=== PATIENT | female | born 1955 | race Caucasian/White ===

== ENCOUNTER → 2018-01-19 08:44 | Outpatient (CLI) | payer MEDICARE, MEDICAID, SELFPAY ==
--- NOTE | 2018-01-19 08:46 | MM_ITS ---
MM Dig screening mamm BI w/CAD ORDERING PHYSICIAN : Ming Terry MD PATIENT AGE: 62 years GENDER: Female COMPARISON: January. INDICATION: ITS.REASON: screening. 62-year-old. Patient takes Estrogen. No new complaints. Noncontributory family history. TECHNIQUE: Standard CC and MLO images were obtained. R2 CAD reviewed. FINDINGS: Minimal residual fibroglandular elements. Mild diffuse accentuation of fibroglandular elements throughout both breast is seen this year and is a change compared to the previous studies,. This appears reflect the interval addition of exogenous oestrogen therapy.. Considering such as see no new areas of significant concern.. This situation glandular tissue which accentuate some areas does yield slight limitations in review of this patient's mammogram, but again no significant new focal area of concern felt to be present overall . Otherwise background of Relatively lower density breast. With No new dominant mass or suspicious calcifications. Scattered benign dermal type calcifications evident bilateral RIGHT BREAST: No focal area of significant concern Area of subtle additional density at the lateral retroareolar region on cc view dissipates on the MLO view and most compatible with an area of accentuated fibroglandular tissue from the estrogen LEFT BREAST:. No focal area of concern. Follow-up in one year . Small intramammary node similar to 2014. Can be followed. IMPRESSION: ...... . There is accentuation of fibroglandular elements in both breast reflecting the exogenous hormone effect. Considering such, no unique nor new focal area of significant concern Bilateral follow-up within one year is recommended; and should be emphasized/encouraged BI-RADS Category: 2 Benign Finding(s) RECOMMENDED FOLLOW-UP: 1YR 1 YEAR FOLLOW-UP (A letter has been sent to the patient regarding results of the study.)
== END ==
PROVIDERS: Family Provider Emergency Medicine; PCP Emergency Medicine; Visit Provider Obstetrics & Gynecology
DX: Z12.31 Encounter for screening mammogram for malignant neoplasm of breast (principal)
CPT/HCPCS: 77067

== ENCOUNTER → 2018-01-28 10:38 | Outpatient (CLI) | payer MEDICARE, MEDICAID, SELFPAY ==
--- NOTE | 2018-01-28 10:41 | XR_ITS ---
XR chest 2V HISTORY: Right-sided chest pain swelling ITS.REASON: rib pain ORDERING PHYSICIAN: Ming Terry MD PATIENT AGE: 62 years COMPARISON: None FINDINGS: Unremarkable cardiovascular structures. No lobar consolidation or collapse. There are old left-sided rib fractures. Minimal lower thoracic curvature convex right. IMPRESSION: As above, no acute finding
== END ==
PROVIDERS: PCP Emergency Medicine; Visit Provider Obstetrics & Gynecology
DX: R07.81 Pleurodynia
CPT/HCPCS: 71046

== ENCOUNTER → 2018-09-21 13:32 | Outpatient (CLI) | payer MEDICARE, MEDICAID, SELFPAY ==
[2018-09-21 13:59] LABS: Basophils % 0.5 % (0.1-2.0); Eosinophils # 0.1 K/mm3 (0.0-0.4); Eosinophils % 1.7 % (0.1-12.0); Hematocrit 41.1 % (37.0-47.0); Hemoglobin 12.7 g/dL (12.2-16.2); Lymphocytes # 1.3 K/mm3 (0.7-4.5); Lymphocytes % 40.4 % (10-50); Mean Corpuscular HGB Conc 30.9 g/dL (31.8-35.4); Mean Corpuscular Hemoglobin 29.8 pg (27.0-31.2); Mean Corpuscular Volume 96.4 fl (81-99); Mean Platelet Volume 8.8 fl (7.4-10.4); Monocytes # 0.2 K/mm3 (0.1-1.0); Monocytes % 5.1 % (1.7-9.3); Neutrophils # 1.7 K/mm3 (1.8-7.8); Neutrophils % 52.2 % (37.0-80.0); Platelet Count 201 K/mm3 (142-424); Red Blood Count 4.27 M/mm3 (4.20-5.40); Red Cell Distribution Width 12.9 % (11.5-17.5); White Blood Count 3.3 K/mm3 (4.8-10.8)
[2018-09-21 14:06] LABS: Erythrocyte Sedimentation Rate 14 mm/hr (0-30)
[2018-09-21 15:44] LABS: Alanine Aminotransferase 30 U/L (12-78); Albumin Level 4.1 gm/dL (3.4-5.0); Albumin/Globulin Ratio 1.4 (1.1-1.8); Alkaline Phosphatase 104 U/L (46-116); Anion Gap 12.7 mEq/L (5-15); Aspartate Amino Transferase 27 U/L (15-37); Bilirubin,Total 0.4 mg/dL (0.2-1.0); Blood Urea Nitrogen 12 mg/dL (7-18); Calcium 11.3 mg/dL (8.5-10.1); Carbon Dioxide 29 mmol/L (21.0-32.0); Chloride 104 mmol/L (98-107); Creatinine,Serum 0.89 mg/dL (0.55-1.02); Estimated Glomerular Filt Rate 65 ml/min (>60); GFR (African American) 78 ML/MIN (>60); Glucose 95 mg/dL (74-106); Potassium 4.7 mmoL/L (3.5-5.1); Sodium 141 mmol/L (136-145); Total Protein,Serum 7.1 gm/dL (6.4-8.2)
== END ==
PROVIDERS: Visit Provider Emergency Medicine
DX: R53.83 Other fatigue (principal)
CPT/HCPCS: 80053; 85025; 85651

== ENCOUNTER → 2018-10-12 10:16 | Outpatient (CLI) | payer MEDICARE, MEDICAID, SELFPAY ==
[2018-10-12 11:15] LABS: Basophils % 0.4 % (0.1-2.0); Eosinophils # 0.1 K/mm3 (0.0-0.4); Eosinophils % 1.5 % (0.1-12.0); Hematocrit 40.2 % (37.0-47.0); Hemoglobin 12.6 g/dL (12.2-16.2); Lymphocytes # 1.9 K/mm3 (0.7-4.5); Lymphocytes % 44.7 % (10-50); Mean Corpuscular HGB Conc 31.3 g/dL (31.8-35.4); Mean Corpuscular Hemoglobin 28.6 pg (27.0-31.2); Mean Corpuscular Volume 91.3 fl (81-99); Mean Platelet Volume 8.3 fl (7.4-10.4); Monocytes # 0.3 K/mm3 (0.1-1.0); Monocytes % 5.9 % (1.7-9.3); Neutrophils % 47.6 % (37.0-80.0); Platelet Count 210 K/mm3 (142-424); Red Cell Distribution Width 12.5 % (11.5-17.5); White Blood Count 4.3 K/mm3 (4.8-10.8)
== END ==
PROVIDERS: Visit Provider Physician Assistant
DX: D70.9 Neutropenia, unspecified (principal)
CPT/HCPCS: 36415; 85025

== ENCOUNTER → 2018-10-13 11:08 | Outpatient (CLI) | payer MEDICARE, MEDICAID, SELFPAY ==
[2018-10-13 11:59] LABS: Basophils % 0.4 % (0.1-2.0); Eosinophils # 0.1 K/mm3 (0.0-0.4); Eosinophils % 1.1 % (0.1-12.0); Hematocrit 38.8 % (37.0-47.0); Hemoglobin 12.2 g/dL (12.2-16.2); Lymphocytes # 1.4 K/mm3 (0.7-4.5); Lymphocytes % 31.5 % (10-50); Mean Corpuscular HGB Conc 31.5 g/dL (31.8-35.4); Mean Corpuscular Hemoglobin 28.6 pg (27.0-31.2); Mean Corpuscular Volume 90.9 fl (81-99); Mean Platelet Volume 8.2 fl (7.4-10.4); Monocytes # 0.2 K/mm3 (0.1-1.0); Monocytes % 5.2 % (1.7-9.3); Neutrophils # 2.7 K/mm3 (1.8-7.8); Neutrophils % 61.7 % (37.0-80.0); Platelet Count 208 K/mm3 (142-424); Red Blood Count 4.27 M/mm3 (4.20-5.40); Red Cell Distribution Width 12.3 % (11.5-17.5); White Blood Count 4.3 K/mm3 (4.8-10.8)
[2018-10-13 12:54] LABS: Alanine Aminotransferase 24 U/L (12-78); Albumin/Globulin Ratio 1.3 (1.1-1.8); Alkaline Phosphatase 103 U/L (46-116); Anion Gap 10.6 mEq/L (5-15); Aspartate Amino Transferase 16 U/L (15-37); Bilirubin,Direct 0.1 mg/dL (0.0-0.2); Bilirubin,Indirect 0.4 mg/dL (0.0-0.9); Bilirubin,Total 0.5 mg/dL (0.2-1.0); Blood Urea Nitrogen 15 mg/dL (7-18); Calcium 11.8 mg/dL (8.5-10.1); Carbon Dioxide 31 mmol/L (21.0-32.0); Chloride 105 mmol/L (98-107); Creatinine,Serum 0.84 mg/dL (0.55-1.02); Estimated Glomerular Filt Rate 69 ml/min (>60); Ferritin 164 ng/mL (8-388); GFR (African American) 84 ML/MIN (>60); Globulin 3.2 gm/dl (1.3-3.2); Glucose 93 mg/dL (74-106); Potassium 4.6 mmoL/L (3.5-5.1); Sodium 142 mmol/L (136-145); Thyroid Stimulating Hormone 2.46 uIU/ml (0.358-3.740); Total Protein,Serum 7.2 gm/dL (6.4-8.2)
[2018-10-14 08:22] LABS: Iron 69 ug/dL (27-159); UIBC 253 ug/dL (131-425)
[2018-10-14 10:32] LABS: Iron Saturation 21 % (15-55)
[2018-10-15 11:12] LABS: Peripheral Smear Review Scanned Result
== END ==
PROVIDERS: Visit Provider Nurse Practitioner Family
DX: R53.83 Other fatigue (principal); D64.9 Anemia, unspecified; D72.9 Disorder of white blood cells, unspecified; D72.829 Elevated white blood cell count, unspecified
CPT/HCPCS: 36415; 80053; 80076; 82728; 83540; 83550; 84443; 85025; 85060

== ENCOUNTER → 2018-11-16 11:56 | Outpatient (CLI) | payer MEDICARE, MEDICAID, SELFPAY ==
[2018-11-16 12:26] LABS: Basophils % 0.4 % (0.1-2.0); Eosinophils % 0.8 % (0.1-12.0); Hematocrit 34.6 % (37.0-47.0); Hemoglobin 11.1 g/dL (12.2-16.2); Lymphocytes # 1.1 K/mm3 (0.7-4.5); Lymphocytes % 20.9 % (10-50); Mean Corpuscular HGB Conc 32.1 g/dL (31.8-35.4); Mean Corpuscular Volume 93.2 fl (81-99); Mean Platelet Volume 8.6 fl (7.4-10.4); Monocytes # 0.3 K/mm3 (0.1-1.0); Monocytes % 4.9 % (1.7-9.3); Neutrophils # 3.8 K/mm3 (1.8-7.8); Neutrophils % 73.1 % (37.0-80.0); Platelet Count 204 K/mm3 (142-424); Red Blood Count 3.71 M/mm3 (4.20-5.40); Red Cell Distribution Width 12.4 % (11.5-17.5); White Blood Count 5.2 K/mm3 (4.8-10.8)
[2018-11-16 12:35] LABS: Alanine Aminotransferase 20 U/L (12-78); Albumin Level 3.7 gm/dL (3.4-5.0); Albumin/Globulin Ratio 1.3 (1.1-1.8); Alkaline Phosphatase 98 U/L (46-116); Anion Gap 10.2 mEq/L (5-15); Aspartate Amino Transferase 16 U/L (15-37); Bilirubin,Total 0.3 mg/dL (0.2-1.0); Blood Urea Nitrogen 11 mg/dL (7-18); Calcium 11.4 mg/dL (8.5-10.1); Carbon Dioxide 30 mmol/L (21.0-32.0); Chloride 104 mmol/L (98-107); Creatinine,Serum 0.87 mg/dL (0.55-1.02); Estimated Glomerular Filt Rate 66 ml/min (>60); GFR (African American) 80 ML/MIN (>60); Globulin 2.8 gm/dl (1.3-3.2); Glucose 104 mg/dL (74-106); Potassium 4.2 mmoL/L (3.5-5.1); Sodium 140 mmol/L (136-145); Total Protein,Serum 6.5 gm/dL (6.4-8.2)
== END ==
PROVIDERS: Visit Provider Nurse Practitioner Family
DX: K59.00 Constipation, unspecified (principal)
CPT/HCPCS: 36415; 80053; 85025

== ENCOUNTER → 2018-11-17 09:29 | Outpatient (CLI) | payer MEDICARE, MEDICAID, SELFPAY ==
--- NOTE | 2018-11-17 09:33 | CT_ITS ---
Procedure: CT ABDOMEN PELVIS W CON CLINICAL INDICATION: ALTERED BOWEL FUNCTION, CONSTIPATION, irritable bowel syndrome COMPARISON: No exams were available for comparison TECHNIQUE: 75 mL Optiray 350 IV Axial images obtained with sagittal and coronal reformats. All CT scans at the facility use one or more dose reduction, viz: automated exposure control, ma/kV adjustment per patient size (including targeted exams where dose is matched to indication, i.e. head), or iterative reconstruction technique. FINDINGS: Lung bases are clear. There is minimal prominence of the intrahepatic biliary tree. The gallbladder is not appear distended. There is a curvilinear calcific density at the fundus of the gallbladder anteriorly with questionable small amount of pericholecystic fluid at this region. The the spleen and pancreas have an unremarkable appearance. There is some minimal calcification of the right adrenal gland but no adrenal enlargement. Bilateral renal cortical scarring is present more prominent on the right. There is a nonobstructing 3 mm stone in the upper pole of the left kidney and there is a small left renal cyst posteriorly at 4 mm. No intestinal obstruction or free air. The appendix is not clearly delineated. No evidence of appendicitis. No intestinal obstruction or free air. No evidence of diverticulitis. There is a small calcific density adjacent to the lateral aspect of the ascending colon nonspecific and could be due to a diverticulum filled with contrast. There are few scattered diverticula of the sigmoid colon. There is mild thickening of the sigmoid colon which could be due to nondistention. There is also mild thickening of the rectum which could be due to nondistention or proctitis. Artifact is present from a left hip prosthesis. No acute bony findings. IMPRESSION: 1. Mild thickening of the sigmoid colon and rectum. Colitis/proctitis is a consideration. This may also be related to nondistention. 2. There are few scattered diverticula but no evidence of diverticulitis. 3. Minimal curvilinear calcification in the fundus of the gallbladder. Recommend follow-up to confirm stability as developing porcelain gallbladder would be included in the differential diagnosis. There is some minimal nonspecific prominence of the biliary tree is well. Dictated by: Emmanuel Reynolds MD 11/17/2018 14:33 Signed by: <Electronically signed by Emmanuel Reynolds MD in [place]> 11/17/2018 14:33
== END ==
PROVIDERS: PCP Emergency Medicine; Visit Provider Nurse Practitioner Family
DX: R19.4 Change in bowel habit (principal)
CPT/HCPCS: 74177; Q9967

== ENCOUNTER → 2018-11-30 10:34 | Outpatient (CLI) | payer MEDICARE, MEDICAID, SELFPAY ==
[2018-11-30 11:30] LABS: Phosphorous 2.2 mg/dL (2.4-4.9)
[2018-12-02 11:39] LABS: Calcium, Ionized 6.9 mg/dL (4.5-5.6); Parathyroid Hormone Intact 144 pg/mL (15-65)
== END ==
PROVIDERS: Visit Provider Surgery
DX: K82.9 Disease of gallbladder, unspecified (principal)
CPT/HCPCS: 36415; 82330; 83970; 84100

== ENCOUNTER → 2018-12-02 08:46 | Outpatient (CLI) | payer MEDICARE, MEDICAID, SELFPAY ==
--- NOTE | 2018-12-02 08:47 | US_ITS ---
PROCEDURE: US GALLBLADDER CLINICAL INDICATION: RUQ pain Nausea, loss of appetite, some weight loss COMPARISON: CT ABDOMEN PELVIS W CON from 11/17/2018 FINDINGS: Pancreas: Unremarkable though a portion of the tail is obscured by bowel gas. Liver: Unremarkable. There is appropriate direction of blood flow within a non dilated portal vein. Right kidney: Unremarkable appearing. The kidney measures 8.3 x 3.2 by 5.5 cm. There is mild uniform cortical thinning. No hydronephrosis. Gallbladder: The gallbladder appears normal in size and there is marked acoustic shadowing beneath consistent with a contracted gallbladder filled with calcified and partially calcified gallstones. The common bile duct measures 3 mm in diameter. IMPRESSION: Obvious cholelithiasis, no other significant abnormality noted Dictated by: Dr. Filiberto Rinaldi MD 12/02/2018 09:[address] Filiberto Rinaldi MD in [place] 12/02/2018 09:26
== END ==
PROVIDERS: PCP Emergency Medicine; Visit Provider Surgery
DX: K82.9 Disease of gallbladder, unspecified (principal)
CPT/HCPCS: 76705

== ENCOUNTER → 2018-12-05 13:48 | Outpatient (CLI) | payer MEDICARE, MEDICAID, SELFPAY ==
[2018-12-07 16:10] LABS: Albumin 3.6 g/dL (2.9-4.4); Alpha-1-Globulin 0.3 g/dL (0.0-0.4); Alpha-2-Globulin 0.8 g/dL (0.4-1.0); Gamma Globulin 0.8 g/dL (0.4-1.8); Protein, Total 6.5 g/dL (6.0-8.5)
[2018-12-08 07:09] LABS: Vitamin D 25 Hydroxy 44.5 ng/mL (30.0-100.0)
== END ==
PROVIDERS: Visit Provider Surgery
DX: E21.3 Hyperparathyroidism, unspecified (principal)
CPT/HCPCS: 36415; 82652; 84155; 84165

== ENCOUNTER → 2019-03-10 13:40 | Outpatient (CLI) | payer MEDICARE, MEDICAID, SELFPAY ==
[2019-03-10 16:14] LABS: Amphetamine/Metha Screen,Urine Positive ng/mL (<1000); Barbiturates Screen,Urine Negative ng/mL (<200); Benzodiazepines Screen,Urine Negative ng/mL (<200); Cannabinoid Screen,Urine Positive ng/mL (<50); Cocaine Screen,Urine Negative ng/mL (<300); Methadone Screen,Urine Positive ng/mL (<300); Opiate Screen,Urine Positive ng/mL (<300); Phencyclidine Screen,Urine Negative ng/mL (<25)
== END ==
PROVIDERS: Visit Provider Emergency Medicine
DX: Z79.899 Other long term (current) drug therapy (principal)
CPT/HCPCS: 80305

== ENCOUNTER → 2019-03-20 13:38 | Outpatient (CLI) | payer MEDICARE, MEDICAID, SELFPAY ==
[2019-03-20 14:47] LABS: Amphetamine/Metha Screen,Urine Positive ng/mL (<1000); Barbiturates Screen,Urine Negative ng/mL (<200); Benzodiazepines Screen,Urine Negative ng/mL (<200); Cannabinoid Screen,Urine Positive ng/mL (<50); Cocaine Screen,Urine Negative ng/mL (<300); Methadone Screen,Urine Negative ng/mL (<300); Opiate Screen,Urine Positive ng/mL (<300); Phencyclidine Screen,Urine Negative ng/mL (<25)
== END ==
PROVIDERS: Visit Provider Emergency Medicine
DX: Z79.899 Other long term (current) drug therapy (principal)
CPT/HCPCS: 80305

== ENCOUNTER → 2019-05-12 13:36 | Outpatient (CLI) | payer MEDICARE, MEDICAID, SELFPAY ==
[2019-05-12 15:53] LABS: Amphetamine/Metha Screen,Urine Positive ng/mL (<1000); Barbiturates Screen,Urine Negative ng/mL (<200); Benzodiazepines Screen,Urine Negative ng/mL (<200); Cannabinoid Screen,Urine Positive ng/mL (<50); Cocaine Screen,Urine Positive ng/mL (<300); Methadone Screen,Urine Negative ng/mL (<300); Opiate Screen,Urine Positive ng/mL (<300); Phencyclidine Screen,Urine Negative ng/mL (<25)
== END ==
PROVIDERS: Visit Provider Emergency Medicine
DX: Z79.899 Other long term (current) drug therapy (principal)
CPT/HCPCS: 80305

== ENCOUNTER → 2020-05-23 08:28 | Outpatient (CLI) | payer MEDICARE, MEDICAID, SELFPAY ==
--- NOTE | 2020-05-23 08:28 | MM_ITS ---
PROCEDURE: MM DIG SCREENING MAMM BI W/CAD Digital Breast Tomosynthesis Included CLINICAL INDICATION: Z12.31 There is no personal or family history of breast cancer. COMPARISON: [facility] DIG MAMM-SCREEN [facility] from 05/22/2013 [facility] DIG MAMM-SCREEN [facility] W/CAD from 04/07/2016 [facility] MM Dig screening mamm BI w/CAD from 01/19/2018 TECHNIQUE: Standard CC and MLO images and 3D Tomosynthesis was obtained. R2 CAD reviewed. FINDINGS: Scattered fibroglandular densities are seen throughout both breast. There are several benign-appearing microcalcifications in each breast. The nipples are inverted bilaterally but this has been noted previously. There is a stable small benign-appearing nodular density upper-outer quadrant left breast. There is no suspicious lesion in either breast and no suspicious microcalcifications. IMPRESSION: Fibrofatty parenchyma with no suspicious lesions seen BI-RAD Category: 2 Benign Finding(s) FOLLOW-UP: 1YR 1 Year Follow-up (A letter has been sent to the patient regarding results of the study.) Dictated by: Dr. Filiberto Rinaldi MD 05/24/2020 15:43 Dr. Filiberto Rinaldi MD in [place] 05/24/2020 15:43
== END ==
PROVIDERS: PCP Emergency Medicine; Visit Provider Emergency Medicine
DX: Z12.31 Encounter for screening mammogram for malignant neoplasm of breast (principal)
CPT/HCPCS: 77063; 77067

== ENCOUNTER → 2020-07-03 14:00 | Outpatient (CLI) | payer MEDICARE, MEDICAID, SELFPAY ==
[2020-07-03 14:19] LABS: Phencyclidine Screen,Urine Negative ng/ml (<25)
[2020-07-03 14:28] LABS: Amphetamine/Metha Screen,Urine Positive ng/ml (<1000)
[2020-07-03 14:30] LABS: Barbiturates Screen,Urine Negative ng/ml (<200); Cannabinoid Screen,Urine Positive ng/ml (<50)
[2020-07-03 14:31] LABS: Benzodiazepines Screen,Urine Negative ng/ml (<200)
[2020-07-03 14:32] LABS: Cocaine Screen,Urine Negative ng/ml (<300); Methadone Screen,Urine Positive ng/ml (<300)
[2020-07-03 14:33] LABS: Opiate Screen,Urine Positive ng/ml (<300)
== END ==
PROVIDERS: Visit Provider Emergency Medicine
DX: M51.36 Other intervertebral disc degeneration, lumbar region (principal)
CPT/HCPCS: 80305

== ENCOUNTER 2020-08-19 17:21 | Emergency (ER) | payer MEDICARE, MEDICAID, SELFPAY ==
[2020-08-19 17:26] VITALS: BP 147/54; PULSE 80; O2SAT 98
[2020-08-19 17:28] VITALS: BP 147/54; PULSE 81; RESP 18; TEMP 36.1; O2SAT 99; BMI 26.0
--- NOTE | 2020-08-19 17:31 | XR_ITS ---
PROCEDURE INFORMATION: Exam: XR Right Wrist Exam date and time: 08/19/20 05:31 PM Age: 64 years old Clinical indication: Pain; Wrist; Right; Patient HX: Fall; Additional info: Trauma TECHNIQUE: Imaging protocol: XR Right wrist. Views: 3 or more views. COMPARISON: No relevant prior studies available. FINDINGS: Bones/joints: Normal. Soft tissues: Normal. IMPRESSION: No acute findings.
--- NOTE | 2020-08-19 17:31 | CT_ITS ---
PROCEDURE INFORMATION: Exam: CT Maxillofacial Without Contrast Exam date and time: 08/19/20 05:31 PM Age: 64 years old Clinical indication: Injury or trauma; Maxilla; Without residual foreign body; Patient HX: Fall down steps, laceration to chin TECHNIQUE: Imaging protocol: Computed tomography images of the face without contrast. Radiation optimization: All CT scans at this facility use at least one of these dose optimization techniques: automated exposure control; mA and/or kV adjustment per patient size (includes targeted exams where dose is matched to clinical indication); or iterative reconstruction. COMPARISON: No relevant prior studies available. FINDINGS: Orbital cavity: Orbits are normal. Globes are unremarkable. Bones/joints: No acute fracture. Paranasal sinuses: Chronic frontal and ethmoid sinusitis. Soft tissues: Unremarkable. IMPRESSION: No acute traumatic injury detected.
--- NOTE | 2020-08-19 17:31 | XR_ITS ---
PROCEDURE INFORMATION: Exam: XR Right Hand Exam date and time: 08/19/20 05:31 PM Age: 64 years old Clinical indication: Pain; Hand; Right; Patient HX: Fall; Additional info: Trauma TECHNIQUE: Imaging protocol: XR Right hand. Views: 3 or more views. COMPARISON: No relevant prior studies available. FINDINGS: Bones/joints: Degenerative changes in the DIP joints. Soft tissues: Normal. IMPRESSION: Degenerative changes in the DIP joints.
--- NOTE | 2020-08-19 17:31 | XR_ITS ---
PROCEDURE INFORMATION: Exam: XR Right Knee Exam date and time: 08/19/20 05:31 PM Age: 64 years old Clinical indication: Pain; Right; Prior surgery; Surgery date: 6+ months; Surgery type: Total knee replacement 2016; Patient HX: Fall; Additional info: Trauma TECHNIQUE: Imaging protocol: XR Right knee. Views: 3 views. COMPARISON: CR [id number] 04/24/16 10:06 AM FINDINGS: Bones/joints: Right total knee arthroplasty in good position. Soft tissues: Normal. IMPRESSION: Right total knee arthroplasty in good position.
--- NOTE | 2020-08-19 18:17 | HMH.EDFALL ---
ED Disposition Clinical Impression: Accidental fall Qualifiers: Encounter type: initial encounter Qualified Code(s): W19.XXXA - Unspecified fall, initial encounter Laceration of face without complication Qualifiers: Encounter type: initial encounter Qualified Code(s): S01.81XA - Laceration without foreign body of other part of head, initial encounter Disposition: Home, Self-Care Condition on Discharge: Good Instructions: How to Prevent Falls Referrals: Chalino Mckeon MD [Primary Care Provider] - - Critical Care Critical Care Time: No Attestation: On 08/19/20, the high probability of a clinically significant, sudden or life threatening deterioration of the following system(s) required my full and direct attention, intervention and personal management. The time I documented below is in addition to time spent performing reported procedures but includes the following listed in this critical care notation. Medical Decision Making - Medical Records Medical records reviewed: Yes: I reviewed the patient's medical records. - Roderick Inquiry Pt receiving controlled substance: Yes Roderick was queried for this patient: No Reason not queried -: Emergent pt cond-no time Risks and benefits of using a controlled substance: were discussed with pt by me Vital Signs: 08/19/20 17:26 08/19/20 17:28 Temperature 97.0 F L Temperature Source Oral Pulse Rate 80 Pulse Rate [Left] 81 Respiratory Rate 18 Blood Pressure 147/54 H Blood Pressure [Right Arm] 147/54 H Blood Pressure Mean 77 Blood Pressure Mean [Right Arm] 85 Blood Pressure Source [Right Arm] Automatic Cuff 02 Sat by Pulse Oximetry 98 99 Oxygen Delivery Method Room Air Orders (Tests/Meds): ED MEDICATIONS Discontinued Medications Generic Name Dose Route Start Last Admin Trade Name Freq PRN Reason Stop Dose Admin Hydrocodone Bitart/Acetaminophen 1 tab 08/19/20 17:33 08/19/20 17:39 Hydrocodone/Apap 5/325 Mg Tablet PO 08/19/20 17:34 1 tab ONCE ONE Administration Lidocaine/Epinephrine 10 ml 08/19/20 18:01 08/19/20 18:02 Lidocaine 1% W/Epi 1:100,000 20ml Vial IM 08/19/20 18:02 10 ml ONCE ONE Administration - Radiology Data #1 Image(s): Wrist, Hand, Knee Image Reviewed: Yes I reviewed the patient's radiology results, Yes I reviewed the patient's radiology image Preliminary Findings: Normal/NAD, No Fracture Seen - CT Data CT Scan: Other (face) Time Received: 18:[address] Reviewed: Yes: I have reviewed the patient's CT results, I have viewed the radiologist's interpretation Preliminary Findings: Normal/NAD, No Fracture Seen - Reevaluation(s) Time: 18:29 Reevaluation #1: Patient tolerated procedure well. Needs follow-up with PCP in 1 week for wound reevaluation. Given strict return precautions. Verbalized understanding. Medical Decision Narrative: 64-year-old female presented to the emergency department after an accidental fall. Patient is a laceration to the chin. There is no loss of consciousness. Patient does not meet imaging criteria for the head or cervical spine. X-rays will be obtained as well as CT of the maxillofacial. Patient will require suture repair. Fall HPI - General Chief Complaint: Fall Stated Complaint: AO 08/19 lac chin Hand Time Seen by Provider: 08/19/20 17:30 Mode of Arrival: Ambulatory Limitations: No Limitations Description of Symptoms (Recalled from ER Triage Doc. by RN): patient fell off porch and down approx 6 steps around 1700. patient with laceration to chin, right wrist/knee abrasions. patient denies LOC - History of Present Illness HPI Narrative: 64-year-old female presented to the emergency department after accidental fall. Patient states that she was walking up her stairs when she tripped and fell. She hit her hand in wrist. She is complaining of some facial pain as well. Patient did not have any loss of consciousness. She is not endorsing any headache. She has a
--- NOTE | 2020-08-19 18:21 | PC.NURSE ---
in room for procedure
[2020-08-19 18:34] VITALS: BP 147/54; PULSE 83; RESP 16; TEMP 36.8; O2SAT 98
== END 2020-08-19 18:42 | disposition home or self-care (01) ==
PROVIDERS: Emergency Provider Emergency Medicine; PCP Emergency Medicine
DX: S01.81XA Laceration without foreign body of other part of head, initial encounter (principal); W10.9XXA Fall (on) (from) unspecified stairs and steps, initial encounter; Y92.019 Unspecified place in single-family (private) house as the place of occurrence of the external cause; F41.8 Other specified anxiety disorders; M81.0 Age-related osteoporosis without current pathological fracture; E03.9 Hypothyroidism, unspecified
CPT/HCPCS: 12052; 70486; 73110; 73130; 73562; 99283

== ENCOUNTER → 2020-08-27 14:07 | Outpatient (CLI) | payer MEDICARE, MEDICAID, SELFPAY ==
[2020-08-27 17:03] LABS: Amphetamine/Metha Screen,Urine Negative ng/ml (<1000)
[2020-08-27 17:04] LABS: Barbiturates Screen,Urine Negative ng/ml (<200); Benzodiazepines Screen,Urine Negative ng/ml (<200)
[2020-08-27 17:05] LABS: Cannabinoid Screen,Urine Positive ng/ml (<50)
[2020-08-27 17:06] LABS: Cocaine Screen,Urine Negative ng/ml (<300); Methadone Screen,Urine Negative ng/ml (<300)
[2020-08-27 17:07] LABS: Opiate Screen,Urine Negative ng/ml (<300)
[2020-08-27 17:08] LABS: Phencyclidine Screen,Urine Negative ng/ml (<25)
== END ==
PROVIDERS: Visit Provider Emergency Medicine
DX: M51.36 Other intervertebral disc degeneration, lumbar region (principal); M54.9 Dorsalgia, unspecified
CPT/HCPCS: 80305

== ENCOUNTER → 2020-10-22 14:01 | Outpatient (CLI) | payer MEDICARE, MEDICAID, SELFPAY ==
[2020-10-22 14:36] LABS: Amphetamine/Metha Screen,Urine Negative ng/ml (<1000)
[2020-10-22 14:37] LABS: Barbiturates Screen,Urine Negative ng/ml (<200); Benzodiazepines Screen,Urine Negative ng/ml (<200)
[2020-10-22 14:38] LABS: Cannabinoid Screen,Urine Positive ng/ml (<50)
[2020-10-22 14:40] LABS: Cocaine Screen,Urine Negative ng/ml (<300)
[2020-10-22 14:41] LABS: Methadone Screen,Urine Negative ng/ml (<300)
[2020-10-22 14:42] LABS: Phencyclidine Screen,Urine Negative ng/ml (<25)
[2020-10-22 14:58] LABS: Opiate Screen,Urine Negative ng/ml (<300)
== END ==
PROVIDERS: Visit Provider Emergency Medicine
DX: M51.36 Other intervertebral disc degeneration, lumbar region (principal)
CPT/HCPCS: 80305

== ENCOUNTER → 2020-12-18 13:51 | Outpatient (CLI) | payer MEDICARE, MEDICAID, SELFPAY ==
[2020-12-18 14:34] LABS: Barbiturates Screen,Urine Negative ng/ml (<200)
[2020-12-18 14:35] LABS: Benzodiazepines Screen,Urine Negative ng/ml (<200)
[2020-12-18 14:36] LABS: Cannabinoid Screen,Urine Positive ng/ml (<50); Cocaine Screen,Urine Negative ng/ml (<300)
[2020-12-18 14:37] LABS: Methadone Screen,Urine Negative ng/ml (<300)
[2020-12-18 14:38] LABS: Opiate Screen,Urine Negative ng/ml (<300); Phencyclidine Screen,Urine Negative ng/ml (<25)
[2020-12-18 15:01] LABS: Amphetamine/Metha Screen,Urine Positive ng/ml (<1000)
== END ==
PROVIDERS: Visit Provider Emergency Medicine
DX: M51.36 Other intervertebral disc degeneration, lumbar region (principal)
CPT/HCPCS: 80305

== ENCOUNTER → 2021-02-14 13:21 | Outpatient (CLI) | payer MEDICARE, MEDICAID, SELFPAY ==
[2021-02-14 21:59] LABS: Barbiturates Screen,Urine Negative ng/ml (<200)
[2021-02-14 22:00] LABS: Benzodiazepines Screen,Urine Negative ng/ml (<200)
[2021-02-14 22:01] LABS: Cannabinoid Screen,Urine Positive ng/ml (<50)
[2021-02-14 22:02] LABS: Cocaine Screen,Urine Negative ng/ml (<300); Methadone Screen,Urine Negative ng/ml (<300)
[2021-02-14 22:03] LABS: Opiate Screen,Urine Negative ng/ml (<300); Phencyclidine Screen,Urine Negative ng/ml (<25)
[2021-02-14 22:58] LABS: Amphetamine/Metha Screen,Urine Positive ng/ml (<1000)
== END ==
PROVIDERS: Visit Provider Emergency Medicine
DX: M51.36 Other intervertebral disc degeneration, lumbar region (principal)
CPT/HCPCS: 80305

== ENCOUNTER → 2021-04-21 18:09 | Outpatient (CLI) | payer MEDICARE, MEDICAID, SELFPAY ==
[2021-04-21 19:38] LABS: Amphetamine/Metha Screen,Urine Negative ng/ml (<1000); Barbiturates Screen,Urine Negative ng/ml (<200)
[2021-04-21 19:39] LABS: Benzodiazepines Screen,Urine Negative ng/ml (<200); Cannabinoid Screen,Urine Positive ng/ml (<50)
[2021-04-21 19:40] LABS: Cocaine Screen,Urine Negative ng/ml (<300)
[2021-04-21 19:41] LABS: Methadone Screen,Urine Negative ng/ml (<300); Opiate Screen,Urine Positive ng/ml (<300)
[2021-04-21 19:42] LABS: Phencyclidine Screen,Urine Negative ng/ml (<25)
== END ==
PROVIDERS: Visit Provider Emergency Medicine
DX: M51.36 Other intervertebral disc degeneration, lumbar region (principal)
CPT/HCPCS: 80305

== ENCOUNTER → 2021-06-17 16:00 | Outpatient (CLI) | payer MEDICARE, MEDICAID, SELFPAY ==
[2021-06-17 18:27] LABS: Barbiturates Screen,Urine Negative ng/ml (<200)
[2021-06-17 18:28] LABS: Benzodiazepines Screen,Urine Negative ng/ml (<200); Cannabinoid Screen,Urine Positive ng/ml (<50)
[2021-06-17 18:29] LABS: Cocaine Screen,Urine Negative ng/ml (<300)
[2021-06-17 18:30] LABS: Methadone Screen,Urine Negative ng/ml (<300); Opiate Screen,Urine Negative ng/ml (<300)
[2021-06-17 18:31] LABS: Phencyclidine Screen,Urine Negative ng/ml (<25)
[2021-06-30 16:14] LABS: Amphetamine Positive (.); Amphetamine (GC/MS) 5092 ng/mL (Cutoff=500); Amphetamines Positive (.); Methamphetamine Positive (.); Methamphetamine (GC/MS) 1202 ng/mL (Cutoff=500)
== END ==
PROVIDERS: Visit Provider Emergency Medicine
DX: M51.36 Other intervertebral disc degeneration, lumbar region (principal); Z79.899 Other long term (current) drug therapy
CPT/HCPCS: 80305; 80324

== ENCOUNTER → 2021-07-02 09:29 | Outpatient (CLI) | payer MEDICARE, MEDICAID, SELFPAY ==
--- NOTE | 2021-07-02 09:33 | XR_ITS ---
FINAL REPORT CLINICAL HISTORY: lateral foot and ankle pain FINDINGS: LEFT ANKLE: Three views of the left ankle were obtained. There is no acute fracture or dislocation. The joint spaces and mortise are intact. There are calcaneal spurs. There is no soft tissue abnormality. IMPRESSION: No acute bony abnormality. Reviewed, Interpreted and Dictated by Ramone Delgadillo III, MD Transcribed by Anmol Wright Authenticated by Ramone Delgadillo III, MD on 07/02/2021 11:30:05 AM [facility]
--- NOTE | 2021-07-02 09:33 | XR_ITS ---
FINAL REPORT CLINICAL HISTORY: lateral foot and ankle pain FINDINGS: 3 views of the last foot were obtained. There is no acute fracture or dislocation. There are mild degenerative changes. There are calcaneal spurs. The soft tissues are unremarkable. IMPRESSION: Mild degenerative change. Reviewed, Interpreted and Dictated by Ramone Delgadillo III, MD Transcribed by Anmol Wright Authenticated by Ramone Delgadillo III, MD on 07/02/2021 11:30:41 AM [facility]
--- NOTE | 2021-07-02 09:33 | XR_ITS ---
FINAL REPORT CLINICAL HISTORY: lateral foot and ankle pain FINDINGS: RIGHT ANKLE: Three views of the right ankle were obtained. There is no acute fracture or dislocation. There are mild degenerative changes. There are calcaneal spurs. There is no soft tissue abnormality. IMPRESSION: Mild degenerative change. Reviewed, Interpreted and Dictated by Ramone Delgadillo III, MD Transcribed by Anmol Wright Authenticated by Ramone Delgadillo III, MD on 07/02/2021 11:30:34 AM [facility]
--- NOTE | 2021-07-02 09:33 | XR_ITS ---
FINAL REPORT CLINICAL HISTORY: lateral foot and ankle pain FINDINGS: RIGHT FOOT: Three views of the right foot were obtained. There is no acute fracture or dislocation. There are mild degenerative changes. There are calcaneal spurs. There is no soft tissue abnormality. IMPRESSION: Mild degenerative change. Reviewed, Interpreted and Dictated by Ramone Delgadillo III, MD Transcribed by Anmol Wright Authenticated by Ramone Delgadillo III, MD on 07/02/2021 11:30:31 AM [facility]
== END ==
PROVIDERS: PCP Emergency Medicine; Visit Provider Podiatrist
DX: M25.572 Pain in left ankle and joints of left foot (principal); M25.571 Pain in right ankle and joints of right foot; M79.672 Pain in left foot; M79.671 Pain in right foot
CPT/HCPCS: 73610; 73630

== ENCOUNTER → 2021-08-11 08:50 | Outpatient (CLI) | payer MEDICARE, MEDICAID, SELFPAY ==
[2021-08-11 15:06] LABS: Barbiturates Screen,Urine Negative ng/ml (<200)
[2021-08-11 15:07] LABS: Benzodiazepines Screen,Urine Positive ng/ml (<200)
[2021-08-11 15:08] LABS: Cannabinoid Screen,Urine Positive ng/ml (<50); Cocaine Screen,Urine Negative ng/ml (<300)
[2021-08-11 15:09] LABS: Methadone Screen,Urine Negative ng/ml (<300); Opiate Screen,Urine Positive ng/ml (<300)
[2021-08-11 15:10] LABS: Phencyclidine Screen,Urine Negative ng/ml (<25)
[2021-08-11 15:59] LABS: Amphetamine/Metha Screen,Urine Positive ng/ml (<1000)
== END ==
LOC: LAB 08-12 10:41 → LAB.DROPOF 08-12 10:52
PROVIDERS: PCP Emergency Medicine; Visit Provider Emergency Medicine
DX: M51.36 Other intervertebral disc degeneration, lumbar region (principal)
CPT/HCPCS: 80305

== ENCOUNTER → 2022-01-27 09:11 | Outpatient (CLI) | payer MEDICARE, MEDICAID, SELFPAY ==
--- NOTE | 2022-01-27 09:15 | XR_ITS ---
FINAL REPORT CLINICAL HISTORY: knee pain replacement 5 yrs ago COMPARISON: July 2020 FINDINGS: 3 views of the right knee were obtained. There is no acute fracture or dislocation. There has been knee arthroplasty. There is a moderate but stable knee joint effusion. IMPRESSION: Post arthroplasty change without evidence of complication. Stable joint effusion. Reviewed, Interpreted and Dictated by Ramone Delgadillo III, MD Transcribed by Anmol Wright Authenticated and [facility]
== END ==
PROVIDERS: PCP Emergency Medicine; Visit Provider Orthopaedic Surgery
DX: M25.561 Pain in right knee (principal)
CPT/HCPCS: 73562

== ENCOUNTER → 2022-04-01 14:51 | Outpatient (CLI) | payer MEDICARE, MEDICAID, SELFPAY ==
[2022-04-01 15:15] LABS: Basophils % 0.5 % (0.1-2.0); Eosinophils # 0.1 K/mm3 (0.0-0.4); Eosinophils % 1.4 % (0.1-12.0); Hematocrit 35.1 % (37.0-47.0); Hemoglobin 11.6 g/dL (12.2-16.2); Lymphocytes # 1.4 K/mm3 (0.7-4.5); Lymphocytes % 30.1 % (10-50); Mean Corpuscular Hemoglobin 30.8 pg (27.0-31.2); Mean Corpuscular Volume 93.3 fl (81-99); Monocytes # 0.2 K/mm3 (0.1-1.0); Monocytes % 4.4 % (1.7-9.3); Neutrophils # 2.9 K/mm3 (1.8-7.8); Neutrophils % 63.4 % (37.0-80.0); Platelet Count 288 K/mm3 (142-424); Red Blood Count 3.77 M/mm3 (4.20-5.40); Red Cell Distribution Width 13.2 % (11.5-17.5); White Blood Count 4.5 K/mm3 (4.8-10.8)
[2022-04-01 15:41] LABS: Chloride 105 mmol/L (98-107); Potassium 4.7 mmoL/L (3.5-5.1); Sodium 140 mmol/L (136-145)
[2022-04-01 15:43] LABS: Alanine Aminotransferase 15 U/L (12-78); Aspartate Amino Transferase 28 U/L (14-36); Blood Urea Nitrogen 18 mg/dl (7-17); Estimated Glomerular Filt Rate 72 ml/min (>60); GFR (African American) 87 ML/MIN (>60)
[2022-04-01 15:44] LABS: Albumin Level 3.9 g/dl (3.5-5.0); Albumin/Globulin Ratio 1.4 (1.1-1.8); Alkaline Phosphatase 73 U/L (38-126); Anion Gap 11.7 mEq/L (5-15); Bilirubin,Total 0.4 mg/dl (0.2-1.3); Calcium 8.7 mg/dl (8.4-10.2); Carbon Dioxide 28 mmol/L (22.0-30.0); Chol/HDL Ratio 3.5 (1-3.5); Cholesterol 198 mg/dl (140-200); Globulin 2.7 g/dL (1.3-3.2); Glucose 96 mg/dl (74-100); HDL Cholesterol 56 mg/dl (40-60); Total Protein,Serum 6.6 g/dl (6.3-8.2); Triglycerides 84 mg/dl (30-150); VLDL Cholesterol 17 mg/dL (0-40)
[2022-04-01 15:55] LABS: Direct LDL Cholesterol 96.97 mg/dL (100-129)
[2022-04-01 16:01] LABS: Barbiturates Screen,Urine Negative ng/ml (<200); Free T4 (Free Thyroxine) 0.86 ng/dl (0.78-2.19)
[2022-04-01 16:02] LABS: 25-OH Vitamin D, Total 31.1 ng/mL (30-100); Benzodiazepines Screen,Urine Positive ng/ml (<200)
[2022-04-01 16:03] LABS: Cannabinoid Screen,Urine Positive ng/ml (<50); Cocaine Screen,Urine Negative ng/ml (<300)
[2022-04-01 16:04] LABS: Methadone Screen,Urine Negative ng/ml (<300)
[2022-04-01 16:06] LABS: Opiate Screen,Urine Positive ng/ml (<300); Phencyclidine Screen,Urine Negative ng/ml (<25)
[2022-04-01 19:44] LABS: Amphetamine/Metha Screen,Urine Positive ng/ml (<1000)
== END ==
LOC: LAB.DROPOF 14:52
PROVIDERS: PCP Emergency Medicine; Visit Provider Emergency Medicine
DX: R53.83 Other fatigue (principal); Z79.899 Other long term (current) drug therapy; E55.9 Vitamin D deficiency, unspecified
CPT/HCPCS: 80053; 80061; 80305; 82306; 84439; 84443; 85025

== ENCOUNTER → 2022-07-20 13:54 | Outpatient (CLI) | payer MEDICARE, MEDICAID, SELFPAY ==
[2022-07-20 14:07] LABS: Barbiturates Screen,Urine Negative ng/ml (<200)
[2022-07-20 14:08] LABS: Benzodiazepines Screen,Urine Positive ng/ml (<200); Cannabinoid Screen,Urine Positive ng/ml (<50)
[2022-07-20 14:09] LABS: Cocaine Screen,Urine Negative ng/ml (<300)
[2022-07-20 14:10] LABS: Methadone Screen,Urine Negative ng/ml (<300); Opiate Screen,Urine Negative ng/ml (<300)
[2022-07-20 14:11] LABS: Phencyclidine Screen,Urine Negative ng/ml (<25)
[2022-07-20 18:29] LABS: Amphetamine/Metha Screen,Urine Positive ng/ml (<1000)
== END ==
LOC: LAB.DROPOF 13:54
PROVIDERS: PCP Emergency Medicine; Visit Provider Emergency Medicine
DX: M25.511 Pain in right shoulder (principal)
CPT/HCPCS: 80305

== ENCOUNTER → 2022-09-16 14:00 | Outpatient (CLI) | payer MEDICARE, MEDICAID, SELFPAY ==
[2022-09-16 13:06] LABS: Barbiturates Screen,Urine Negative ng/ml (<200)
[2022-09-16 13:08] LABS: Benzodiazepines Screen,Urine Positive ng/ml (<200); Cannabinoid Screen,Urine Positive ng/ml (<50)
[2022-09-16 13:09] LABS: Cocaine Screen,Urine Negative ng/ml (<300); Methadone Screen,Urine Negative ng/ml (<300)
[2022-09-16 13:10] LABS: Opiate Screen,Urine Positive ng/ml (<300)
[2022-09-16 13:11] LABS: Phencyclidine Screen,Urine Negative ng/ml (<25)
[2022-09-19 20:09] LABS: Amphetamine Positive (.); Amphetamine (GC/MS) >3000 ng/mL (Cutoff=500); Amphetamines Positive (.); Methamphetamine Positive (.); Methamphetamine (GC/MS) 1823 ng/mL (Cutoff=500)
== END ==
LOC: LAB.DROPOF 14:00
PROVIDERS: PCP Emergency Medicine; Visit Provider Emergency Medicine
DX: M25.511 Pain in right shoulder (principal)
CPT/HCPCS: 80305; 80324

== ENCOUNTER → 2022-11-12 16:19 | Outpatient (CLI) | payer MEDICARE, MEDICAID, SELFPAY ==
[2022-11-12 18:35] LABS: Benzodiazepines Screen,Urine Positive ng/ml (<200)
[2022-11-12 18:36] LABS: Barbiturates Screen,Urine Negative ng/ml (<200)
[2022-11-12 18:37] LABS: Cannabinoid Screen,Urine Positive ng/ml (<50); Cocaine Screen,Urine Negative ng/ml (<300)
[2022-11-12 18:38] LABS: Methadone Screen,Urine Negative ng/ml (<300); Opiate Screen,Urine Positive ng/ml (<300)
[2022-11-12 18:39] LABS: Phencyclidine Screen,Urine Negative ng/ml (<25)
[2022-11-12 18:58] LABS: Amphetamine/Metha Screen,Urine Positive ng/ml (<1000)
== END ==
LOC: LAB.DROPOF 16:20
PROVIDERS: PCP Emergency Medicine; Visit Provider Emergency Medicine
DX: M25.511 Pain in right shoulder (principal)
CPT/HCPCS: 80305

== ENCOUNTER → 2023-01-06 13:08 | Outpatient (CLI) | payer MEDICARE, MEDICAID, SELFPAY ==
[2023-01-06 12:18] LABS: Barbiturates Screen,Urine Negative ng/ml (<200); Benzodiazepines Screen,Urine Positive ng/ml (<200)
[2023-01-06 12:19] LABS: Cocaine Screen,Urine Negative ng/ml (<300)
[2023-01-06 12:20] LABS: Methadone Screen,Urine Negative ng/ml (<300)
[2023-01-06 12:21] LABS: Cannabinoid Screen,Urine Positive ng/ml (<50); Opiate Screen,Urine Positive ng/ml (<300)
[2023-01-06 12:22] LABS: Phencyclidine Screen,Urine Negative ng/ml (<25)
[2023-01-11 13:15] LABS: Amphetamine Positive (.); Amphetamine (GC/MS) >3000 ng/mL (Cutoff=500); Amphetamines Positive (.); Methamphetamine Positive (.); Methamphetamine (GC/MS) 2111 ng/mL (Cutoff=500)
== END ==
LOC: LAB.DROPOF 13:09
PROVIDERS: PCP Emergency Medicine; Visit Provider Emergency Medicine
DX: M25.511 Pain in right shoulder (principal); Z79.899 Other long term (current) drug therapy
CPT/HCPCS: 80305; 80324

== ENCOUNTER → 2023-03-16 11:34 | Outpatient (CLI) | payer MEDICARE, SELFPAY ==
[2023-03-16 12:10] LABS: Barbiturates Screen,Urine Negative ng/ml (<200)
[2023-03-16 12:12] LABS: Benzodiazepines Screen,Urine Positive ng/ml (<200); Cocaine Screen,Urine Negative ng/ml (<300)
[2023-03-16 12:13] LABS: Cannabinoid Screen,Urine Positive ng/ml (<50)
[2023-03-16 12:14] LABS: Methadone Screen,Urine Negative ng/ml (<300); Phencyclidine Screen,Urine Negative ng/ml (<25)
[2023-03-16 12:15] LABS: Opiate Screen,Urine Negative ng/ml (<300)
[2023-03-27 08:37] LABS: Amphetamine Positive (.); Amphetamine (GC/MS) >3000 ng/mL (Cutoff=500); Amphetamines Positive (.); Methamphetamine Positive (.); Methamphetamine (GC/MS) 1453 ng/mL (Cutoff=500)
== END ==
PROVIDERS: PCP Internal Medicine; Visit Provider Internal Medicine
DX: Z79.899 Other long term (current) drug therapy (principal)
CPT/HCPCS: 80307; 80324

== ENCOUNTER 2023-04-27 15:19 | Outpatient (CLI) | payer MEDICARE, SELFPAY ==
--- NOTE | 2023-04-27 15:26 | XR_ITS ---
FINAL REPORT CLINICAL HISTORY: right shoulder pain COMPARISON: None FINDINGS: Three views show no evidence of acute displaced fracture or dislocation of the visualized bony architecture. There is moderate acromioclavicular degenerative change. There is mild degenerative change of the glenohumeral joint. Chondrocalcinosis is present. IMPRESSION: Mild degenerative change of the glenohumeral joint, with moderate acromioclavicular degenerative change. Reviewed, Interpreted and Dictated by Jasmyn Scott MD Transcribed by Mildred Emery Authenticated and [facility]
== END 2023-04-27 23:59 ==
LOC: RAD 15:21
PROVIDERS: PCP Internal Medicine; Visit Provider Internal Medicine
DX: M51.36 Other intervertebral disc degeneration, lumbar region (principal); M25.511 Pain in right shoulder
CPT/HCPCS: 73030

== ENCOUNTER 2023-05-12 11:31 | Outpatient (CLI) | payer MEDICARE, SELFPAY ==
[2023-05-12 11:57] LABS: Basophils % 0.2 % (0.1-2.0); Eosinophils # 0.1 K/mm3 (0.0-0.4); Eosinophils % 1.2 % (0.1-12.0); Hematocrit 37.2 % (37.0-47.0); Hemoglobin 12.4 g/dL (12.2-16.2); Lymphocytes # 1.3 K/mm3 (0.7-4.5); Lymphocytes % 23.2 % (10-50); Mean Corpuscular HGB Conc 33.5 g/dL (31.8-35.4); Mean Corpuscular Hemoglobin 31.1 pg (27.0-31.2); Mean Corpuscular Volume 92.9 fl (81-99); Mean Platelet Volume 9.1 fl (7.4-10.4); Monocytes # 0.2 K/mm3 (0.1-1.0); Monocytes % 4.4 % (1.7-9.3); Neutrophils # 3.9 K/mm3 (1.8-7.8); Platelet Count 203 K/mm3 (142-424); Red Cell Distribution Width 13.2 % (11.5-17.5); White Blood Count 5.6 K/mm3 (4.8-10.8)
[2023-05-12 12:06] LABS: Alanine Aminotransferase 14 U/L (12-78); Albumin Level 4.2 g/dl (3.5-5.0); Albumin/Globulin Ratio 1.7 (1.1-1.8); Alkaline Phosphatase 75 U/L (38-126); Aspartate Amino Transferase 28 U/L (14-36); Bilirubin,Total 0.4 mg/dl (0.2-1.3); Blood Urea Nitrogen 19 mg/dl (7-17); Calcium 9.3 mg/dl (8.4-10.2); Carbon Dioxide 30 mmol/L (22.0-30.0); Chloride 102 mmol/L (98-107); Chol/HDL Ratio 3.2 (1-3.5); Cholesterol 187 mg/dl (140-200); Estimated Glomerular Filt Rate 63 ml/min (>60); GFR (African American) 76 ML/MIN (>60); Globulin 2.5 g/dL (1.3-3.2); Glucose 98 mg/dl (74-100); HDL Cholesterol 58 mg/dl (40-60); Sodium 138 mmol/L (136-145); Total Protein,Serum 6.7 g/dl (6.3-8.2); Triglycerides 75 mg/dl (30-150); VLDL Cholesterol 15 mg/dL (0-40)
[2023-05-12 12:46] LABS: Erythrocyte Sedimentation Rate 19 mm/hr (0-30)
[2023-05-12 13:12] LABS: Hemoglobin A1C 5.1 % (4.0-6.0)
[2023-05-12 13:13] LABS: Vitamin B12 300 pg/mL (239-931)
[2023-05-12 13:15] LABS: Folate 7.64 ng/mL
[2023-05-12 13:33] LABS: Ferritin 40.7 ng/ml (11.1-264)
== END 2023-05-12 23:59 ==
LOC: LAB.DROPOF 11:31
PROVIDERS: PCP Internal Medicine; Visit Provider Internal Medicine
DX: E53.8 Deficiency of other specified B group vitamins (principal); D64.9 Anemia, unspecified; R53.83 Other fatigue; M85.80 Other specified disorders of bone density and structure, unspecified site; E11.9 Type 2 diabetes mellitus without complications; E78.5 Hyperlipidemia, unspecified; E55.9 Vitamin D deficiency, unspecified; Z79.899 Other long term (current) drug therapy
CPT/HCPCS: 80053; 80061; 82306; 82607; 82728; 82746; 83036; 85025; 85651

== ENCOUNTER 2023-06-03 08:36 | Outpatient (CLI) | payer MEDICARE, MEDICAID, SELFPAY ==
--- NOTE | 2023-06-03 08:37 | XR_ITS ---
FINAL REPORT TECHNIQUE: Bone mineral density was calculated of the lumbar spine and hip. CLINICAL HISTORY: osteoporosis COMPARISON: None FINDINGS: Using L1-4, the bone mineral density of the spine is 0.8 9 g/cm2, corresponding to T-score of -1.4. Using the right hip, the bone mineral density of the femoral neck is 0.66 g/cm2, corresponding to a T-score of -1.7. Using the right forearm, the bone mineral density of the distal right forearm is 0.38 g/cm?, corresponding to a T-score of -3.6. NOTE: T-score: Standard deviation compared with peak bone mass of young adult mean. *Following the recommendations of the International Society of Bone densitometry, classification of hip BMD is based on the lower of two T-scores; total hip or femoral neck. IMPRESSION: Diminished bone mineral density of the lumbar spine and right hip consistent with low bone density. Diminished bone mineral density of the right distal forearm consistent with osteoporosis. Reviewed, Interpreted and Dictated by Ramone Delgadillo III, MD Transcribed by Mildred Emery Authenticated and . [facility]
== END 2023-06-03 23:59 ==
LOC: RAD 08:37
PROVIDERS: PCP Internal Medicine; Visit Provider Internal Medicine
DX: M81.0 Age-related osteoporosis without current pathological fracture (principal)
CPT/HCPCS: 77080

== ENCOUNTER 2023-06-09 13:23 | Outpatient (CLI) | payer MEDICARE, MEDICAID, SELFPAY ==
--- NOTE | 2023-06-09 13:24 | MR_ITS ---
FINAL REPORT CLINICAL HISTORY: right shoulder pain FINDINGS: Multiplanar MR imaging of the right shoulder was performed without contrast. The images are degraded by motion artifact. There is supraspinatus and infraspinatus tendinosis. Small intrasubstance tears are seen of the distal supraspinatus and infraspinatus tendon. No full-thickness rotator cuff tear is identified. There is moderate AC joint arthrosis with edema in the joint capsule. Small amount of fluid is present in the subacromial/subdeltoid bursa. The glenoid labrum is intact. A large intrasubstance tear is seen of the proximal long head of the biceps tendon. A small glenohumeral joint effusion is seen. There is no evidence of fracture or dislocation. The musculature is intact. Multiple subchondral cysts are seen in the lateral humeral head with adjacent bone marrow edema. IMPRESSION: Small intrasubstance tears of the distal supraspinatus and infraspinatus tendons without evidence of full-thickness rotator cuff tear. Large intrasubstance tear of the proximal long head of the biceps tendon. Moderate AC joint degenerative change. Subchondral cysts in the lateral humeral head. Authenticated and [facility]
== END 2023-06-09 23:59 ==
LOC: RAD 13:24
PROVIDERS: PCP Internal Medicine; Visit Provider Internal Medicine
DX: M25.511 Pain in right shoulder; G89.29 Other chronic pain
CPT/HCPCS: 73221

== ENCOUNTER 2023-06-30 18:36 | Outpatient (CLI) | payer MEDICARE, MEDICAID, SELFPAY ==
[2023-06-30 18:14] LABS: Eosinophils # 0.1 K/mm3 (0.0-0.4); Eosinophils % 1.6 % (0.1-12.0); Hematocrit 40.6 % (37.0-47.0); Hemoglobin 12.9 g/dL (12.2-16.2); Lymphocytes % 25.7 % (10-50); Mean Corpuscular HGB Conc 31.9 g/dL (31.8-35.4); Mean Corpuscular Hemoglobin 30.6 pg (27.0-31.2); Mean Corpuscular Volume 96.2 fl (81-99); Mean Platelet Volume 9.2 fl (7.4-10.4); Monocytes # 0.2 K/mm3 (0.1-1.0); Monocytes % 4.5 % (1.7-9.3); Neutrophils # 2.6 K/mm3 (1.8-7.8); Neutrophils % 67.2 % (37.0-80.0); Platelet Count 226 K/mm3 (142-424); Red Blood Count 4.22 M/mm3 (4.20-5.40); Red Cell Distribution Width 13.2 % (11.5-17.5); White Blood Count 3.8 K/mm3 (4.8-10.8)
== END 2023-06-30 23:59 ==
LOC: LAB.DROPOF 18:37
PROVIDERS: PCP Internal Medicine; Visit Provider Internal Medicine
DX: R53.83 Other fatigue (principal)
CPT/HCPCS: 85025

== ENCOUNTER 2023-10-01 15:37 | Emergency (ER) | payer MEDICARE, MEDICAID, SELFPAY ==
[2023-10-01 15:50] VITALS: BP 139/71; PULSE 70; RESP 20; TEMP 36.8; O2SAT 100; BMI 23.3
[2023-10-01 16:00] VITALS: BP 133/64; PULSE 63; RESP 18; O2SAT 99
[2023-10-01] MEDS: AMOXICILLIN/CLAVULANATE POTASSIUM 875/125MG TABLET 1 EACH PO (16:10)
[2023-10-01] MEDS: LIDOCAINE 1% 20ML MDV 20 ML SQ (16:10)
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
[2023-10-01 16:31] VITALS: BP 126/62; PULSE 66; RESP 16; O2SAT 99
[2023-10-01 17:00] VITALS: BP 126/67; PULSE 52; O2SAT 100
[2023-10-01 18:08] VITALS: BP 134/69; PULSE 74; RESP 18; TEMP 36.6; O2SAT 100
== END 2023-10-01 18:09 | disposition home or self-care (01) ==
PROVIDERS: Emergency Provider Emergency Medicine; PCP Internal Medicine
DX: S81.811A Laceration without foreign body, right lower leg, initial encounter (principal); W54.0XXA Bitten by dog, initial encounter
CPT/HCPCS: 12004; 99283

== ENCOUNTER 2023-12-01 08:18 | Outpatient (CLI) | payer MEDICARE, MEDICAID, SELFPAY ==
--- NOTE | 2023-12-01 08:18 | MM_ITS ---
PROCEDURE INFORMATION: Exam: MG Bilateral Screening 3D Mammography Exam date and time: 12/01/2023 8:14 AM Age: 67 years old Clinical indication: Screening mammogram TECHNIQUE: Imaging protocol: Bilateral Screening tomosynthesis and 2D mammography including computer-aided detection (CAD) when performed. COMPARISON: 1. MG MM DIG SCREENING MAMM BI W/CAD 05/23/2020 8:28 AM 2. MG SCBI MM Dig screening mamm BI w/CAD 01/19/2018 8:58 AM 3. MG DMSB DIG MAMM-SCREEN MIKAEL W/CAD 04/07/2016 11:13 AM 4. MG DMSB DIG MAMM-SCREEN MIKEAL 05/22/2013 8:55 AM FINDINGS: MAMMOGRAPHY: Breast composition: There are scattered areas of fibroglandular density. Mass: None. Architectural distortion: No new or suspicious architectural distortion. Calcifications: No new or suspicious calcifications are present Asymmetric density: No new or suspicious asymmetric density is present Skin thickening: None. Axillary adenopathy: None. IMPRESSION: No mammographic evidence of malignancy. Recommend annual screening mammography unless otherwise clinically indicated. ASSESSMENT: BI-RADS category 1: Negative.
== END 2023-12-01 23:59 | disposition home or self-care (01) ==
LOC: RAD 08:18
PROVIDERS: PCP Internal Medicine; Visit Provider Internal Medicine
DX: Z12.31 Encounter for screening mammogram for malignant neoplasm of breast (principal)
CPT/HCPCS: 77063; 77067

== ENCOUNTER 2023-12-09 21:52 | Outpatient (CLI) | payer MEDICARE, MEDICAID, SELFPAY ==
[2023-12-10 07:28] LABS: HIV (1&2) Antibody Rapid NONREACTIVE (NONREACTIVE)
[2023-12-11 09:57] LABS: HBsAg Screen Negative (Negative); HCV Ab Non Reactive (Non Reactive); Hep A Ab, IGM Negative (Negative); Hep B Core Ab, IgM Negative (Negative)
== END 2023-12-09 23:59 | disposition home or self-care (01) ==
LOC: LAB.DROPOF 21:54
PROVIDERS: PCP Internal Medicine; Visit Provider Internal Medicine
DX: Z11.59 Encounter for screening for other viral diseases (principal); K74.60 Unspecified cirrhosis of liver
CPT/HCPCS: 80074; 86803; 87389

== ENCOUNTER 2024-07-25 10:03 | Outpatient (CLI) | payer MEDICARE, MEDICAID, SELFPAY ==
[2024-07-25 19:56] LABS: Free T4 (Free Thyroxine) 0.97 ng/dl (0.78-2.19)
[2024-07-25 20:16] LABS: Thyroid Stimulating Hormone 2.12 uIU/mL (0.465-4.68)
== END 2024-07-25 23:59 | disposition home or self-care (01) ==
LOC: LAB.DROPOF 07-27 11:26
PROVIDERS: PCP Family Medicine; Visit Provider Family Medicine
DX: D72.819 Decreased white blood cell count, unspecified (principal)
CPT/HCPCS: 84439; 84443

== ENCOUNTER 2024-07-27 11:53 | Outpatient (CLI) | payer MEDICARE, MEDICAID, SELFPAY ==
[2024-07-27 12:09] LABS: Basophils % 0.9 % (0.1-2.0); Eosinophils % 0.6 % (0.1-12.0); Hematocrit 35.8 % (37.0-47.0); Hemoglobin 11.6 g/dL (12.2-16.2); Lymphocytes # 1.3 K/mm3 (0.7-4.5); Lymphocytes % 41.7 % (10-50); Mean Corpuscular HGB Conc 32.4 g/dL (31.8-35.4); Mean Corpuscular Hemoglobin 29.1 pg (27.0-31.2); Mean Corpuscular Volume 89.9 fl (81-99); Mean Platelet Volume 9.1 fl (7.4-10.4); Monocytes # 0.2 K/mm3 (0.1-1.0); Monocytes % 6.2 % (1.7-9.3); Neutrophils # 1.6 K/mm3 (1.8-7.8); Neutrophils % 50.3 % (37.0-80.0); Nucleated Red Blood Cells # 0 10^3/uL; Nucleated Red Blood Cells % 0 %; Platelet Count 299 K/mm3 (142-424); Red Blood Count 3.98 M/mm3 (4.20-5.40); Red Cell Distribution Width 11.9 % (11.5-17.5); White Blood Count 3.2 K/mm3 (4.8-10.8)
[2024-07-27 12:34] LABS: Alanine Aminotransferase 18 U/L (12-78); Albumin/Globulin Ratio 1.6 (1.1-1.8); Alkaline Phosphatase 77 U/L (38-126); Anion Gap 8.2 mEq/L (5-15); Aspartate Amino Transferase 27 U/L (14-36); Bilirubin,Total 0.2 mg/dl (0.2-1.3); Blood Urea Nitrogen 18 mg/dl (7-17); Calcium 9.3 mg/dl (8.4-10.2); Carbon Dioxide 27 mmol/L (22.0-30.0); Chloride 108 mmol/L (98-107); Chol/HDL Ratio 2.4 (1-3.5); Cholesterol 158 mg/dl (140-200); Estimated Glomerular Filt Rate 55 ml/min (>60); GFR (African American) 67 ML/MIN (>60); Globulin 2.5 g/dL (1.3-3.2); Glucose 97 mg/dl (74-100); HDL Cholesterol 65 mg/dl (40-60); Potassium 4.2 mmoL/L (3.5-5.1); Sodium 139 mmol/L (136-145); Total Protein,Serum 6.5 g/dl (6.3-8.2); Triglycerides 51 mg/dl (30-150); VLDL Cholesterol 10 mg/dL (0-40)
[2024-07-27 12:46] LABS: Direct LDL Cholesterol 69.92 mg/dL (100-129)
== END 2024-07-27 23:59 | disposition home or self-care (01) ==
LOC: LAB 11:53
PROVIDERS: PCP Family Medicine; Visit Provider Family Medicine
DX: E78.5 Hyperlipidemia, unspecified (principal); I10 Essential (primary) hypertension; D72.819 Decreased white blood cell count, unspecified
CPT/HCPCS: 36415; 80053; 80061; 85025

== ENCOUNTER 2024-10-10 09:00 | Outpatient (CLI) | payer MEDICARE, SELFPAY ==
--- OUTSIDE RECORDS SUMMARY | 2024-10-10 09:03 | XMS_ITS | Clinical Summary ---
Author Organization Healthcare Address [address] [id number] Care Team Providers Care Tool Adjuster Name Role Phone Chalino Mckeon MD Primary Care Provider [phone] Family History Medical History Relation Name Comments Conversions - Other Daughter Hepatiti s C Arthritis Mother Relation Name Status Comments Daughter Mother Social History Tobacco Use Types Packs/Day Years Used Date Smoking Tobacco: Never Alcohol Use Standard Drinks/Week Comments No 0 (1 standard drink = 0.6 oz pur e alcohol) Comments Unknown Sex and Gender Information Value Date Recorded Sex Assigned at Not on file Legal Sex Female 8:38 PM EDT Gender Identity Not on file Sexual Orientation Not on file Last Filed Vital Signs Vital Sign Reading Time Taken Comments Blood Pressure 114/62 12/06/2018 10:14 AM EDT Pulse 72 12/06/2018 10:14 AM EDT Temperature 36.7 C (98 F) 10/30/2019 2:38 PM EDT Respiratory Rate - - Oxygen Saturation - - Inhaled Oxygen Concentration - - Weight 60.3 kg (133 lb 0.1 oz) 10/30/2019 2:38 P M EDT Height 158.8 cm (5' 2.5 ) 10/30/2019 2:38 PM EDT Body Mass Index 23.94 10/30/2019 2:38 PM EDT Plan of Treatment Health Maintenance Due Date Last Done Comments [facility]-Bone Density Scan 1957 [facility]-Depression Screening 1957 [facility]-/Child/Adol SDOH Screenings 1957 [facility]- SDOH Screenings 12/31/1975 [facility]-Adult SDOH Screenings 12/31/1975 [facility]-DTaP,Tdap,and Td Vaccine s (1 - Tdap) 1976 CT Colonography 2002 Colonoscopy 2002 FIT-DNA 2002 FIT 2002 FOBT 2002 Sigmoidoscopy 2002 [facility]-Colorectal Cancer Screening 2002 [facility]-Pneumococcal Vaccine: 50 + Years (1 of 1 - PCV) 12/31/2007 [facility]-Zoster Vaccines (1 of 2) 12/31/2007 [id number] Vaccine (1 - 20 24-25 season) 2023 [facility]-Influenza Vaccine (#1) 2024 [facility]-RSV Vaccine: 60+ Years o r (1 - 1-dose 75+ series) 2032 HPV Vaccines Aged Out No longer eligi ble based on patient's age to complete this topic [facility]-HIB Vaccines Aged Out No longer e ligible based on patient's age to complete this topic [facility]Y-Hepatitis A Vaccines Aged Out No longer eligible based on patient's age to complete this topic UKY-IPV Vaccines Aged Out No longer e ligible based on patient's age to complete this topic [facility]Y-Rotavirus Vaccines Aged Out No lo nger eligible based on patient's age to complete this topic Care Teams Tool Adjuster Relationship Specialty Start Date End Date Chalino Mckeon MD [address] [place] [address] [place] [address] PCP - General 08/09/20
--- NOTE | 2024-10-10 09:15 | XR_ITS ---
FINAL REPORT CLINICAL HISTORY: osteoporosis COMPARISON: 06/03/2023 FINDINGS: Using L1-4, the bone mineral density of the spine is 0.852 g/cm2, corresponding to T-score of -1.8, compatible with osteopenia. Previously was 0.888 with a T-score of -1.4. Using the right forearm, the bone mineral density of 1/3 is 0.593 g/cm2, corresponding to a T-score of -1.7, compatible with osteopenia. Previously was 0.502 with a T-score of -3.2. Using the right hip, the bone mineral density of the femoral neck is 0.594 g/cm2, corresponding to a T-score of -2.3, compatible with osteopenia. Previously was 0.684 with a T-score of -2.1. FRAX not reported because the patient is being treated for osteoporosis. NOTE: T-score: Standard deviation compared with peak bone mass of young adult mean. *Following the recommendations of the International Society of Bone densitometry, classification of hip BMD is based on the lower of two T-scores; total hip or femoral neck. IMPRESSION: Diminished bone mineral density consistent with osteopenia. Reviewed, Interpreted and Dictated by Jasmyn Scott MD Transcribed by Tori Jj Authenticated and [facility]
== END 2024-10-10 23:59 | disposition home or self-care (01) ==
LOC: RAD 09:01
PROVIDERS: PCP Family Medicine; Visit Provider Family Medicine
DX: M85.80 Other specified disorders of bone density and structure, unspecified site (principal); M81.0 Age-related osteoporosis without current pathological fracture
CPT/HCPCS: 77080

== ENCOUNTER 2024-12-21 10:14 | Outpatient (CLI) | payer MEDICARE, SELFPAY ==
--- NOTE | 2024-12-21 10:16 | XR_ITS ---
FINAL REPORT CLINICAL HISTORY: right shoulder pain FINDINGS: 2 views of the right shoulder were obtained. There is no prior exam for comparison. There is no fracture or dislocation. Degenerative joint disease is noted. Soft tissues are unremarkable. IMPRESSION: Degenerative change without acute osseous abnormality of the right shoulder. Reviewed, Interpreted and Dictated by Brunilda oRsa MD Transcribed by Tori Jj Authenticated and [facility]
--- OUTSIDE RECORDS SUMMARY | 2024-12-21 10:17 | XMS_ITS | Clinical Summary ---
Author Organization Healthcare Address [address] [id number] Care Team Providers Care Police Communications Operator Name Role Phone Chalino Mckeon MD Primary Care Provider [phone] Family History Medical History Relation Name Comments [...] 12/31/2007 [facility]-Zoster Vaccines (1 of 2) 12/31/2007 [id number] Vaccine (1 - 20 24-25 season) 2024 [facility]-Influenza Vaccine (#1) 2024 [facility]Y-RSV Vaccine: 60+ [...] age to complete this topic Care Teams Police Communications Operator Relationship Specialty Start Date End Date Chalino Mckeon MD [address] [place] [address] [place] [address] PCP - General 08/09/20
== END 2024-12-21 23:59 | disposition home or self-care (01) ==
LOC: RAD 10:15
PROVIDERS: PCP Family Medicine; Visit Provider Physician Assistant Surgical
DX: M19.011 Primary osteoarthritis, right shoulder (principal)
CPT/HCPCS: 73030